=== PATIENT | female | born 1945 | race Caucasian/White ===

== ENCOUNTER → 2016-07-03 | Outpatient (CLI) | payer MEDICARE ==
[~2016-07-03] MED LIST: ALLO100T PO; AMLO10TA2 PO; ASPI325T4 PO; ATORVASTATIN CA80 MG PO; CETI10TA16 PO; CITA40TA12 PO; CYCL10TA2 PO; DOXA8TAB59 PO; FURO20TA3 PO; LEVO75TA5 PO; LORA1TAB PO; METF10002 PO; METO10TA PO; METO50TA2 PO; OMEP40CA5 PO; ONDA-35 PO; POTA20TA4 PO; PROAIR HFA8.5 GM INH; TRAM50TA PO
[2016-07-03 16:04] LABS: BASO % 0 % (0-3); EOS % 1 % (0-3); HEMATOCRIT 35.7 % (36.0-47.0); HEMOGLOBIN 11.5 g/dL (12.0-15.5); LYMPH # 2.1 x10^3/uL (1.0-4.8); LYMPH % 18 % (24-48); MEAN CORPUSCULAR HEMOGLOBIN 28 pg (25-35); MEAN CORPUSCULAR HGB CONC 32 g/dL (31-37); MEAN CORPUSCULAR VOLUME 86 fL (79-100); MONO % 5 % (0-9); NEUT % 76 % (31-73); PLATELET COUNT 308 x10^3/uL (140-400); RED BLOOD COUNT 4.17 x10^6/uL (3.50-5.40); RED CELL DISTRIBUTION WIDTH 15.2 % (11.5-14.5); WHITE BLOOD COUNT 11.5 x10^3/uL (4.0-11.0)
[2016-07-03 16:26] LABS: ALBUMIN 3.6 g/dL (3.4-5.0); CALCIUM 8.6 mg/dL (8.5-10.1); CREATININE 0.9 mg/dL (0.6-1.0); GFR 62.3; POTASSIUM 3.9 mmol/L (3.5-5.1); TOTAL BILIRUBIN 0.4 mg/dL (0.2-1.0)
== END | disposition home or self-care (01) ==
LOC: SURGPAT 14:07
PROVIDERS: ATTEND Surgery
DX: Z01.812 Encounter for preprocedural laboratory examination (principal)
CPT/HCPCS: 36415; 80048; 82040; 82247; 85027

== ENCOUNTER → 2016-07-16 | Day surgery (SDC) | payer MEDICARE ==
[~2016-07-16] VITALS: Ht 162.6 cm; Wt 74.8 kg
[~2016-07-16] MED LIST changes: +BUPIVACAINE-EPI 0.5%-1:200000 50 ML VIAL. ONE; +DESFLURANE 31 TO 60 MINUTES IH ONE; +DEXAMETHASONE SOD PHOS 20 MG/5 ML VIAL. ONE; +EPHEDRINE PF IN SALINE 50 MG/5 ML DISP.SYRIN. IV ONE; +FENTANYL PF 100 MCG/2 ML VIAL. IV PRN; +FENTANYL PF 250 MCG/5 ML VIAL. ONE; +GLUCAGON,HUMAN RECOMBINANT 1 MG/ML VIAL. ONE; +GLYCOPYRROLATE 1 MG/5 ML VIAL. ONE; +HYDR-971 PO; +HYDROMORPHONE 2 MG/ML VIAL. IV PRN; +IOHEXOL 300 MG/ML 50 ML VIAL. ONE; +IV RINGERS,LACTATED 1000ML 1,000 ML IV SCH; +LIDOCAINE 1% 1 ML SYRINGE. ID PRN; +LIDOCAINE 2% 100 MG/5 ML DISP.SYRIN. ONE; +MORPHINE SULFATE 2 MG/ML DISP.SYRIN. IV PRN; +NEOSTIGMINE METHYLSULFATE 5 MG/5 ML SYRINGE. ONE; +ONDANSETRON PF 4 MG/2 ML VIAL. IV ONE; +ONDANSETRON PF 4 MG/2 ML VIAL. IV PRN; +ONDANSETRON PF 4 MG/2 ML VIAL. ONE; +PROCHLORPERAZINE 10 MG/2 ML VIAL. IV PRN; +PROPOFOL 20 ML IV ONE; +ROCURONIUM 50 MG/5 ML VIAL. ONE; +ROPIVacaine 0.5% PF 30 ML VIAL. ONE; +SURGICEL HEMOSTAT 4X8 EACH. ONE
--- NOTE | 2016-07-16 10:19 | RAD ---
Intraoperative cholangiogram, 07/16/2016: History: Cholecystectomy 4 spot films from surgery are presented for review. 0.32 minutes of fluoroscopy time was utilized. Contrast has been injected into the cystic duct remnant. There is good flow of contrast into the duodenum at the ampulla. There appears to be a moderate-sized duodenal diverticulum. The common duct is at the upper limits of normal in size. No filling defect is seen in the duct to suggest a retained calculus. The common hepatic duct was only partially opacified probably due to preferential distal flow of the contrast. IMPRESSION: 1. No evidence of a retained common duct calculus. 2. Duodenal diverticulum.
--- NOTE | 2016-07-16 10:32 | PDOC ---
BRIEF OPERATIVE NOTE Date: Jul 16, 2016 Pre-Op Diagnosis biliary dyskinesia Post-Op Diagnosis same Procedure Performed l/s cholecystectomy with cholangiograms Surgeon Francisco Anesthesia Type: General Blood Loss 10cc IV Fluid 1000cc Specimens Obtained GB Findings supple GB, normal grams, probable duodenal diverticulum, fatty liver replacement Complications none Additional Remarks # [id number] ANDREI REMY MD Jul 16, 2016 10:32
--- NOTE | 2016-07-16 10:37 | DISCH ---
DISCHARGE INSTRUCTIONS Condition on Discharge Condition on Discharge: Stable Activity After Discharge Activity Instructions for Disc: Activity as tolerated, Avoid exertion Lifting Instructions after Dis: No heavy lifting Driving Instructions after Dis: Do not drive (3-4 days) Diet after Discharge Diet after Discharge: Regular Wound Incision Care Wound/Incision Care: Ice to area for comfort Other wound/incision instructi: october shower Saturday Follow-Up Follow up with: Francisco next week ANDREI REMY MD Jul 16, 2016 10:37
[2016-07-16] MEDS: FENTANYL PF 100 MCG/2 ML VIAL. IV PRN ×2 (11:00→11:16)
--- NOTE | 2016-07-16 12:41 | OP ---
DATE OF SURGERY: 07/16/2016 PREOPERATIVE DIAGNOSIS: Biliary dyskinesia. POSTOPERATIVE DIAGNOSIS: Biliary dyskinesia. PROCEDURE: Laparoscopic cholecystectomy with cholangiogram. SURGEON: Andrei Remy MD ANESTHESIA: General. ESTIMATED BLOOD LOSS: 10 mL. INTRAVENOUS FLUIDS: 1 liter. INDICATIONS: The patient is a 70-year-old lady with nausea and occasional vomiting after meals particular fatty meals. She is here for cholecystectomy. OPERATIVE FINDINGS: The liver was fatty . The gallbladder was supple. Cholangiograms were normal. Visual inspection of the remainder of the abdomen failed to reveal obvious abnormalities. DESCRIPTION OF PROCEDURE: The patient brought to the operating suite, given a general endotracheal anesthetic. Abdomen prepped and draped in the usual sterile fashion. A small infraumbilical incision was made after infiltrating local anesthetic and a 5-mm Visiport used to gain access into the abdominal cavity, taking care to avoid any injury to abdominal contents. Pneumoperitoneum was established. Camera inserted. Inspection carried out with results as noted above. With the table in reverse Trendelenburg rolled to left, the epigastric, midclavicular, and lateral ports were placed under direct vision. Each after infiltrating the area with local anesthetic. The lateral port site location was used for the "alligator" grasper after local anesthetic. Gallbladder was retracted superolaterally and the cystic duct and cystic artery were isolated. The cystic duct was clipped on the gallbladder side. Cholangiograms were made. These were normal. In light of this, the catheter was removed. The cystic duct was clipped and divided, taking care to avoid injury or compromise of the common duct. There was limited filling of the proximal biliary tree despite the bed being steep Trendelenburg position. The cystic artery was then isolated, clipped and divided and the gallbladder freed from the bed with cautery dissection and placed in an EndoCatch bag. Excellent hemostasis was present. Gallbladder delivered through the epigastric incision. Epigastric incision closed with interrupted 0 Vicryl suture. Intra-abdominal pressure decreased to 6 cm of water. No bleeding from the epigastric closure or from the midclavicular port site after its removal or from the site of the alligator grasper after it was removed. Abdomen decompressed, camera slowly removed, no bleeding seen. Skin incisions closed with subcuticular 4-0 Monocryl. Steri-Strips and sterile dressings applied. The patient awakened from her anesthetic and taken to the recovery room in satisfactory condition. ANDREI REMY MD DR: MEGGAN/whit JOB#: [id number] / [id number]
[2016-07-16 13:26] VITALS: BP 133/55
--- NOTE | 2016-07-17 14:26 | PATHOLOGY ---
PATHOLOGY REPORT * * * * * * * * FINAL DIAGNOSIS: Gallbladder, laparoscopic cholecystectomy: - Chronic cholecystitis, mild. COMMENT: There are no calculi identified within the gallbladder lumen or specimen container. Sections of the gallbladder show mild chronic inflammation. There is no evidence of malignancy. (JPM:csd; d/t: 07/17/2016) REPORT ELECTRONICALLY SIGNED BY: Librado Song M.D. DATE/TIME: 07/17/2016 13:31 * * * * * * * * GROSS PATHOLOGY: Received in formalin labeled "Rowan Key - gallbladder sac with contents," is a 6.4 x 2.7 x 2.0 cm, intact gallbladder with pink-garcia to garcia-green, well vascularized, and wrinkled serosal surfaces. There is an undesignated suture at the fundic region of the gallbladder. Opening the gallbladder reveals light green and velvety mucosa and an average wall thickness of 0.1 cm. Calculi are not present and no masses are noted grossly. Hand Cigar Making Supervisor sections from the body and fundus are submitted along with the proximal margin in cassette A1. (TTL; 07/16/2016) INITIAL CPT CODE(S): A; 59999 Professional services performed by [facility] at [address] [address] Technical services performed by [facility] at [address] [place] [address], [facility] [address] [address]. SPECIMEN(S) RECEIVED: A.Gallbladder sac with contents CLINICAL HISTORY: Biliary dyskinesia PATIENT: ROWAN KEY /AGE: 511/29/1945 (Age: 70) PATIENT #: [id number] ALT CASE #: SPECIMEN COLLECTION DATE: 07/16/2016 SPECIMEN RECEIVED DATE: 07/16/2016 [facility] - [id number] [place] [address] - PHONE: [phone] * * * END OF REPORT * * *
== END ==
LOC: SURG 07:45
PROVIDERS: ATTEND Surgery
DX: K82.8 Other specified diseases of gallbladder (principal); J45.909 Unspecified asthma, uncomplicated; E78.00 Pure hypercholesterolemia, unspecified; E03.9 Hypothyroidism, unspecified; M19.90 Unspecified osteoarthritis, unspecified site; F41.9 Anxiety disorder, unspecified; F32.9 Major depressive disorder, single episode, unspecified; F17.200 Nicotine dependence, unspecified, uncomplicated
CPT/HCPCS: 47563; 74300; 82947; 88304; C1782; J1100; J1170; J1956; J2405; J2704; J2710; J2795; J3010; J3490; J7030; Q9967; J1610

== ENCOUNTER 2021-04-28 06:20 | Day surgery (SDC) | payer MEDICARE ==
[~2021-04-28] VITALS: Ht 162.6 cm; Wt 80.4 kg
[~2021-04-28 06:20] MED LIST changes: +ALBU2.5V8 INH; +AMLO-187 PO; -AMLO10TA2 PO; +ASCO500C PO; +ASPI-630 PO; -ASPI325T4 PO; +ASPI325T8 PO; -BUPIVACAINE-EPI 0.5%-1:200000 50 ML VIAL. ONE; +CYCL10TA19 PO; -CYCL10TA2 PO; -DESFLURANE 31 TO 60 MINUTES IH ONE; -DEXAMETHASONE SOD PHOS 20 MG/5 ML VIAL. ONE; -EPHEDRINE PF IN SALINE 50 MG/5 ML DISP.SYRIN. IV ONE; +ESCITALOPRAM OX10 MG PO; -FENTANYL PF 100 MCG/2 ML VIAL. IV PRN; -FENTANYL PF 250 MCG/5 ML VIAL. ONE; -GLUCAGON,HUMAN RECOMBINANT 1 MG/ML VIAL. ONE; -GLYCOPYRROLATE 1 MG/5 ML VIAL. ONE; +HYDR-3164 PO; -HYDR-971 PO; -HYDROMORPHONE 2 MG/ML VIAL. IV PRN; +HYDROmorphone 2 MG/ML VIAL IVP PRN; -IOHEXOL 300 MG/ML 50 ML VIAL. ONE; -LIDOCAINE 1% 1 ML SYRINGE. ID PRN; -LIDOCAINE 2% 100 MG/5 ML DISP.SYRIN. ONE; -METF10002 PO; +METF10007 PO; -METO50TA2 PO; +METO50TA6 PO; -MORPHINE SULFATE 2 MG/ML DISP.SYRIN. IV PRN; +MORPHINE SULFATE 2 MG/ML INJ. IVP PRN; +MV-M1TAB54 PO; -NEOSTIGMINE METHYLSULFATE 5 MG/5 ML SYRINGE. ONE; +NITR0.4T22 SL; -OMEP40CA5 PO; +OMEP40CA7 PO; -ONDA-35 PO; +ONDA-84 PO; -ONDANSETRON PF 4 MG/2 ML VIAL. IV ONE; -ONDANSETRON PF 4 MG/2 ML VIAL. IV PRN; -ONDANSETRON PF 4 MG/2 ML VIAL. ONE; +OXYB10TA26 PO; +POTA-121 PO; -POTA20TA4 PO; -PROAIR HFA8.5 GM INH; -PROCHLORPERAZINE 10 MG/2 ML VIAL. IV PRN; +PROCHLORPERAZINE 10 MG/2 ML VIAL. IVP PRN; -PROPOFOL 20 ML IV ONE; -ROCURONIUM 50 MG/5 ML VIAL. ONE; -ROPIVacaine 0.5% PF 30 ML VIAL. ONE; -SURGICEL HEMOSTAT 4X8 EACH. ONE; +fentaNYL PF VIAL 100 MCG/2 ML VIAL IVP PRN
[2021-04-28] MEDS ORDERED: LIDOCAINE 2% PF 5 ML VIAL. ONE ×2 (06:22→06:27)
[2021-04-28] MEDS ORDERED: ONDANSETRON PF 4 MG/2 ML VIAL. ONE ×2 (06:22→06:27)
[2021-04-28] MEDS ORDERED: DEXAMETHASONE SOD PHOS 4 MG/ML VIAL ONE ×2 (06:22→06:27)
[2021-04-28] MEDS ORDERED: PROPOFOL 10 MG/ML (20ML) VIAL. IV ONE ×2 (06:22→06:27)
[2021-04-28] MEDS ORDERED: ROCURONIUM 50 MG/5 ML VIAL. ONE (06:23)
[2021-04-28 07:01] VITALS: BP 185/86
[2021-04-28] MEDS ORDERED: ROPIVacaine 0.5% PF 20 ML VIAL. ONE (07:01)
[2021-04-28] MEDS ORDERED: SUCCINYLCHOLINE 200 MG/10 ML VIAL. ONE (07:13)
[2021-04-28] MEDS ORDERED: fentaNYL PF VIAL 100 MCG/2 ML VIAL ONE ×2 (07:13→09:28)
[2021-04-28] MEDS ORDERED: MIDAZOLAM HCL/PF 2 MG/2 ML VIAL. ONE (07:13)
[2021-04-28] MEDS ORDERED: EPINEPHrine VIAL 30 MG/30 ML VIAL ONE (07:15)
[2021-04-28] MEDS ORDERED: BUPIVACAINE-EPI 0.25%-1:200000 MPF 30 ML VIAL. ONE (07:15)
[2021-04-28] MEDS ORDERED: HYDR-2761 PO (07:31)
[2021-04-28] MEDS ORDERED: PHENYLEPHRINE in 0.9% NACL PF 1 MG/10 ML SYRINGE. IV ONE (07:58)
[2021-04-28] MEDS ORDERED: GLYCOPYRROLATE 1 MG/5 ML VIAL. ONE (07:58)
[2021-04-28] MEDS ORDERED: PHENYLEPHRINE 10 MG/ML VIAL. ONE (08:10)
[2021-04-28] MEDS ORDERED: NEOSTIGMINE METHYLSULFATE 5 MG/5 ML SYRINGE. ONE (08:31)
[2021-04-28] MEDS ORDERED: SUGAMMADEX SODIUM 200 MG/2 ML VIAL. IVP ONE (08:45)
--- NOTE | 2021-04-28 09:05 | PDOC4 ---
OPERATIVE NOTE Date: Date: Apr 28, 2021 Pre-Op Diagnosis: Long head bicep tear with rotator cuff tear impingement AC arthrosis right shoulder Post-Op Diagnosis: Same Procedure Performed: Right shoulder arthroscopy with debridement bicep tendon long head subacromial decompression distal clavicle flexion mini open rotator cuff repair Surgeon: Kartik Anesthesia Type: General Blood Loss: 20 cc Specimans Obtained: None Findings: See dictation Complications: None SHIV GARCIA Jr. DO Apr 28, 2021 09:05
--- NOTE | 2021-04-28 09:07 | DISCH ---
DISCHARGE INSTRUCTIONS Condition on Discharge Condition on Discharge: Stable Activity After Discharge Activity Instructions for Disc: Activity as tolerated, Avoid exertion Bathing Instructions: Shower-keep dressing dry Lifting Instructions after Dis: No heavy lifting Driving Instructions after Dis: Do not drive, Do not drive today Sexual Activity Restrictions: No use right upper extremity maintain immobilizer Diet after Discharge Diet after Discharge: Regular Wound Incision Care Wound/Incision Care: Ice to area for comfort Other wound/incision instructi: May change dressings postoperative day #3 and apply water resistant Band- Follow-Up Follow up with: 10 to 14 days SHIV GARCIA Jr. DO Apr 28, 2021 09:07
[2021-04-28] MEDS ORDERED: HYDROcodone/APAP 5/325MG 1 TAB TABLET PO ONE (09:30)
[2021-04-28] MEDS: fentaNYL PF VIAL 100 MCG/2 ML VIAL IVP PRN ×2 (09:32→09:39)
[2021-04-28 09:55] VITALS: BP 163/72
[2021-04-28] MEDS ORDERED: SEVOFLURANE 31 TO 60 MINUTES. IH ONE (10:47)
--- NOTE | 2021-04-28 11:45 | OP ---
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 PROCEDURE: Right shoulder arthroscopy with debridement of biceps tendon, subacromial decompression, distal clavicle resection with mini open rotator cuff repair. SURGEON: Lukas Verdugo Jr, DO HOT STRIP FINISHER: Stephen Hernandez. ANESTHESIA: General. COMPLICATIONS: None. ESTIMATED BLOOD LOSS: 30 mL. Standard dictation for first helper. DESCRIPTION OF PROCEDURE: The patient was taken to the operative suite, given general anesthetic, placed in a beach chair position. Right shoulder was then prepped and draped in a sterile fashion. Standard posterior portal was established. The glenohumeral joint was visualized. There were no significant changes of the glenohumeral joint at all. Articular surfaces were intact. The labral tissue was intact as well. Unfortunately, there was a tear of the biceps tendon, which is approximately 2 cm from the insertion. Therefore, this was a free fragment and after the anterior portal was established, with the shaver, this was debrided back to stable tissue. No other abnormalities were noted. Inferior glenohumeral ligament looked good as well. Nothing in the inferior pouch as far as a loose body. Scope was then taken into the subacromial region and after skeletonization of the undersurface of the acromion was done, a subacromial decompression was undertaken. The anterior portal was then redirected into the AC joint and a portion of the distal clavicle was subsequently resected as well as a portion of the undersurface of that as well. This decompressed the area. Unfortunately, there was a 90% tear of the rotator cuff noted from the intraarticular exam as well as the exam subacromially. Therefore, all instruments were removed after this was suctioned dry and lateral portal was then included in an incision laterally through skin and subcutaneous tissues. This was carefully taken down to the deltoid fascia. This was split in line with the skin incision. This was retracted anteriorly and posteriorly and the bursectomy was completed and then the rotator cuff tear was noted to be of the supraspinatus. This was completed with an 11 blade. Following the rongeur used to create the bed for the footprint, 2 suture anchors followed by 2 SwiveLocks were used to repair the rotator cuff in a medial and lateral row fixation using standard technique. This had excellent purchase and fixation of good tissue. This was then thoroughly irrigated. The deltoid split was reapproximated. Superficial tissues and skin was reapproximated. Sterile dressing was applied. The patient was then taken from the operative bed to the postoperative bed and taken to the PACU in stable condition. POLI DR: Lamberto TID: [id number]
== END 2021-04-28 10:45 | disposition home or self-care (01) ==
LOC: SURG 06:20
PROVIDERS: ATTEND Orthopaedic Surgery
DX: M19.011 Primary osteoarthritis, right shoulder (principal); M75.111 Incomplete rotator cuff tear or rupture of right shoulder, not specified as traumatic; I25.10 Atherosclerotic heart disease of native coronary artery without angina pectoris; I10 Essential (primary) hypertension; E78.00 Pure hypercholesterolemia, unspecified; J44.9 Chronic obstructive pulmonary disease, unspecified; K21.9 Gastro-esophageal reflux disease without esophagitis; M19.90 Unspecified osteoarthritis, unspecified site; E03.9 Hypothyroidism, unspecified; E11.9 Type 2 diabetes mellitus without complications; F41.9 Anxiety disorder, unspecified; F32.9 Major depressive disorder, single episode, unspecified; Z87.891 Personal history of nicotine dependence; Z90.49 Acquired absence of other specified parts of digestive tract; Z98.890 Other specified postprocedural states; Z79.82 Long term (current) use of aspirin; Z79.84 Long term (current) use of oral hypoglycemic drugs; Z79.899 Other long term (current) drug therapy; Z88.0 Allergy status to penicillin; Z88.8 Allergy status to other drugs, medicaments and biological substances
CPT/HCPCS: 29824; 29827; 29828; A4928; A4930; C1713; J0171; J0330; J0690; J1100; J2250; J2370; J2405; J2704; J2710; J2795; J3010; J3490; A4452